=== PATIENT | female | born 1985 | race Hispanic/Latino ===

== ENCOUNTER 2016-09-09 21:35 | Emergency (ER) | payer MEDICARE, OTHER ==
[2016-09-09] MEDS ORDERED: METHYLPRED SOD SUCC 125 MG/2 ML VIAL ONE (23:51)
== END 2016-09-10 00:49 | disposition home or self-care (01) ==
LOC: ER 21:35
DX: R20.8 Other disturbances of skin sensation (principal); Z79.899 Other long term (current) drug therapy; F17.210 Nicotine dependence, cigarettes, uncomplicated
CPT/HCPCS: 36415 ×2; 80053 ×2; 85025 ×2; 85610 ×2; 85730 ×2; 96374 ×2; 99283; J2930

== ENCOUNTER 2016-09-14 18:10 | Emergency (ER) | payer MEDICARE, OTHER ==
[2016-09-15] MEDS ORDERED: METHYLPRED SOD SUCC 125 MG/2 ML VIAL ONE (01:03)
== END 2016-09-15 03:10 | disposition home or self-care (01) ==
LOC: ER 18:10
DX: R20.9 Unspecified disturbances of skin sensation (principal); Z79.899 Other long term (current) drug therapy; F17.210 Nicotine dependence, cigarettes, uncomplicated
CPT/HCPCS: 72100; 81003; 81025; 96374; 99284; G0479; J2930; 80307

== ENCOUNTER 2016-09-22 19:04 | Emergency (ER) | payer MEDICARE, OTHER ==
[2016-09-22] MEDS ORDERED: DILAUDID 1 MG/ML AMP ONE (21:19)
[2016-09-22] MEDS ORDERED: ONDANSETRON ODT 4 MG TAB ONE (21:19)
== END 2016-09-22 23:03 | disposition home or self-care (01) ==
LOC: ER 19:04
DX: S40.012A Contusion of left shoulder, initial encounter (principal); S40.011A Contusion of right shoulder, initial encounter; S80.02XA Contusion of left knee, initial encounter; S80.12XA Contusion of left lower leg, initial encounter; S90.02XA Contusion of left ankle, initial encounter; S30.0XXA Contusion of lower back and pelvis, initial encounter; W19.XXXA Unspecified fall, initial encounter; Z91.81 History of falling; Y93.89 Activity, other specified; Y92.008 Other place in unspecified non-institutional (private) residence as the place of occurrence of the external cause; S23.420A Sprain of sternoclavicular (joint) (ligament), initial encounter; Z79.899 Other long term (current) drug therapy
CPT/HCPCS: 72220; 73030; 73562; 73590; 73610; 96372; 99284; J1170